=== PATIENT | female | born 1975 | race Caucasian/White ===

== ENCOUNTER 2020-02-06 15:38 | Emergency (ER) | payer MEDICAID ==
[2020-02-06 15:54] VITALS: BP 128/80; PULSE 65
--- NOTE | 2020-02-06 16:23 | EDM.PDOC ---
ED HPI GENERAL MEDICAL PROBLEM - General Chief Complaint: Respiratory Problem Stated Complaint: TROUBLE BREATHING, COUGH Time Seen by Provider: 02/06/20 16:05 Source of Information: Reports: Patient History Limitations: Reports: No Limitations - History of Present Illness INITIAL COMMENTS - FREE TEXT/NARRATIVE: 44-year-old usually healthy female, non-smoker, has had a cough for the past week but it is worsening over the past 2 to 3 days with some productive sputum and chest pain with cough. No real shortness of breath unless she is very active. She says she gets "bronchitis" almost every year at this time. She does not have asthma. Onset: Gradual Duration: Day(s): (7 days) Associated Symptoms: Reports: Cough, Shortness of Breath (With activity), Weakness. Denies: Fever/Chills Generalized Pain Score (Numeric/FACES): 2 - Related Data Allergies Allergy/AdvReac Type Severity Reaction Status Date / Time No Known Allergies Allergy Verified 02/06/20 15:55 Home Meds: Home Meds Cyclobenzaprine [Flexeril] 10 mg PO DAILY PRN 10/08/15 [History] Propranolol [Inderal LA] 240 mg PO DAILY 10/08/15 [History] hydroCHLOROthiazide [Hydrochlorothiazide] 12.5 mg PO DAILY 10/08/15 [History] Cholecalciferol (Vitamin D3) [Vitamin D3] 1,000 unit PO TID 02/06/20 [History] Potassium Chloride [K-Tab ER] 20 meq PO BID 02/06/20 [History] Zonisamide 25 mg PO DAILY 02/06/20 [History] Past Medical History Cardiovascular History: Reports: Hypertension Gastrointestinal History: Reports: Cholelithiasis 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 Denies: Fever, Chills HEENT: Denies: Throat Pain Respiratory: Reports: Shortness of Breath, Cough, Sputum Cardiovascular: Reports: Chest Pain (With coughing only) GI/Abdominal: Reports: No Symptoms Skin: Reports: No Symptoms Neurological: Reports: Headache ED EXAM, GENERAL - Physical Exam Exam: See Below General Appearance: Alert, No Apparent Distress Ears: Normal TMs Head: Atraumatic Respiratory/Chest: No Respiratory Distress, Rhonchi (Scattered perihilar, eugenio with cough) Cardiovascular: Regular Rate, Rhythm Skin Exam: Warm, Dry Course - Vital Signs Last Recorded V/S: Last Vital Signs Temp 96.8 F L 02/06/20 15:53 Pulse 65 02/06/20 15:53 Resp 16 02/06/20 15:53 BP 128/80 02/06/20 15:53 Pulse Ox 98 02/06/20 15:53 - Orders/Labs/Meds Orders: Active Orders 24 hr Category Date Time Status CORONAVIRUS COVID-19, [facility]EL Stat Lab 02/06/20 16:24 Received - Re-Assessments/Exams Free Text/Narrative Re-Assessment/Exam: 02/06/20 16:23 A send out Covid test was obtained and the patient will be placed on a course of Zithromax while awaiting results. She will return if worsening. She should consider quarantining for the next 48 hours. Departure - Departure Time of Disposition: 16:35 Disposition: Home, Self-Care 01 Clinical Impression: Bronchitis - Discharge Information Instructions: Acute Bronchitis, Adult, [id number] Referrals: Grayson Schroeder ELECTRONIC WARFARE TECHNICAL [Primary Care Provider] - Forms: ED Department Discharge Care Plan Goals: Take antibiotic as prescribed, rest and fluids are important. Consider quarantining until the Covid test is available in a couple days. Return anytime if worsening such as difficulty breathing. Sepsis Event Note (ED) - Evaluation Sepsis Screening Result: No Definite Risk - My Orders Last 24 Hours: My Active Orders 02/06/20 16:24 CORONAVIRUS COVID-19, YUNIEL Stat - Assessment/Plan Last 24 Hours: My Active Orders 02/06/20 16:24 CORONAVIRUS COVID-19, YUNIEL Stat
== END 2020-02-06 16:35 | disposition home or self-care (01) ==
LOC: JP.ED 15:38
DX: J40 Bronchitis, not specified as acute or chronic (principal); I10 Essential (primary) hypertension; E66.9 Obesity, unspecified; Z68.35 Body mass index [BMI] 35.0-35.9, adult; Z20.828 Contact with and (suspected) exposure to other viral communicable diseases
CPT/HCPCS: 99283; U0002

== ENCOUNTER 2020-02-25 15:18 | Emergency (ER) | payer MEDICAID ==
[2020-02-25] MEDS ORDERED: Aspirin 81 MG Tab.Chew PO ONE (16:47)
[2020-02-25] MEDS ORDERED: Ketorolac 60 MG/2 ML SDV IM ONE (16:48)
--- NOTE | 2020-02-25 16:51 | EDM.PDOC ---
ED HPI GENERAL MEDICAL PROBLEM - General Chief Complaint: Chest Pain Stated Complaint: CHEST PAIN Time Seen by Provider: 02/25/20 16:44 Source of Information: Reports: Patient, Old Records, RN Notes Reviewed History Limitations: Reports: No Limitations - History of Present Illness INITIAL COMMENTS - FREE TEXT/NARRATIVE: 44-year-old female presents emergency department today complaint of chest pain, she states that chest pain started early this morning it will wax and wane becomes quite intense she is very specific to where the pain is center of her chest left side approximately T4 level. She states she gets short of breath some nausea some diaphoresis when the pain is intense she has no cardiac history does not smoke tobacco products remote family history with grandparents - Related Data Allergies Allergy/AdvReac Type Severity Reaction Status Date / Time No Known Allergies Allergy Verified 02/25/20 15:55 Home Meds: Home Meds Cyclobenzaprine [Flexeril] 10 mg PO DAILY PRN 10/08/15 [History] Propranolol [Inderal LA] 240 mg PO DAILY 10/08/15 [History] hydroCHLOROthiazide [Hydrochlorothiazide] 12.5 mg PO DAILY 10/08/15 [History] Cholecalciferol (Vitamin D3) [Vitamin D3] 1,000 unit PO TID 02/06/20 [History] Potassium Chloride [K-Tab ER] 20 meq PO BID 02/06/20 [History] Zonisamide 25 mg PO DAILY 02/06/20 [History] Mometasone Furoate 200mcg [Asmanex HFA 200mcg] 2 puff IH BID 02/25/20 [History] Past Medical History Cardiovascular History: Reports: Hypertension Gastrointestinal History: Reports: Cholelithiasis 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: Musculoskeletal History: Reports: Fracture Other Musculoskeletal History: fx l arm Neurological History: Reports: Migraines Endocrine/Metabolic History: Reports: Obesity/BMI 30+ - Infectious Disease History Infectious Disease History: Reports: Chicken Pox Social & Family History - Tobacco Use Tobacco Use Status *Q: Never Tobacco User - Caffeine Use Caffeine Use: Reports: Coffee, Tea ED ROS GENERAL - Review of Systems Review Of Systems: See Below Constitutional: Reports: No Symptoms HEENT: Reports: No Symptoms Respiratory: Reports: Shortness of Breath Cardiovascular: Reports: Chest Pain GI/Abdominal: Reports: Nausea : Reports: No Symptoms Musculoskeletal: Reports: No Symptoms ED EXAM, GENERAL - Physical Exam Exam: See Below Exam Limited By: No Limitations General Appearance: Alert, WD/WN, No Apparent Distress Neck: Normal Inspection, Supple, Non-Tender, Full Range of Motion Respiratory/Chest: No Respiratory Distress, Lungs Clear, Normal Breath Sounds, No Accessory Muscle Use, Chest Non-Tender Cardiovascular: Regular Rate, Rhythm, No Murmur GI/Abdominal: Soft, Non-Tender Course - Vital Signs Last Recorded V/S: Last Vital Signs Temp 97.2 F 02/25/20 15:57 Pulse 80 02/25/20 17:02 Resp 16 02/25/20 16:32 BP 138/97 H 02/25/20 17:02 Pulse Ox 98 02/25/20 16:32 - Orders/Labs/Meds Orders: Active Orders 24 hr Category Date Time Status Cardiac Monitoring [RC] .As Directed Care 02/25/20 16:47 Active EKG Documentation Completion [RC] ASDIRECTED Care 02/25/20 16:48 Active EKG 12 Lead [EK] Stat Ther 02/25/20 16:48 Ordered Labs: Laboratory Tests 02/25/20 02/25/20 Range/Units 17:03 17:03 WBC 11.3 H (4.5-11.0) K/uL RBC 4.99 (3.30-5.50) M/uL Hgb 13.4 (12.0-15.0) g/dL Hct 42.0 (36.0-48.0) % MCV 84 (80-98) fL MCH 27 (27-31) pg MCHC 32 (32-36) % Plt Count 357 (150-400) K/uL Neut % (Auto) 63 (36-66) % Lymph % (Auto) 29 (24-44) % [place] % (Auto) 7 H (2-6) % Eos % (Auto) 2 (2-4) % Baso % (Auto) 0 (0-1) % Sodium 140 (140-148) mmol/L Potassium 3.0 L (3.6-5.2) mmol/L Chloride 101 (100-108) mmol/L Carbon Dioxide 28 (21-32) mmol/L Anion Gap 14.0 (5.0-14.0) mmol/L BUN 10 (7-18) mg/dL Creatinine 1.0 (0.6-1.0) mg/dL Est Cr Clr Drug Dosing 52.64 mL/min Estimated GFR (MDRD) > 60 (>60) Glucose 104 (74-106) mg/dL Calcium 8.8 (8.5-10.1) mg/dL Total Bilirubin 0.2 (0.2-1.0) mg/dL AST 17 (15-37) U/L ALT 47 (12-78) U/L Alkaline Phosphatase 62 (46-116) U/L Troponin I < 0.017 (0.000-0.056) ng/mL Total Protein 7.1 (6.4-8.2) g/dL Albumin 3.3 L (3.4-5.0) g/dL Globulin 3.8 H (2.3-3.5) g/dL Albumin/Globulin Ratio 0.9 L (1.2-2.2) Meds: Medications Discontinued Medications Generic Name Dose Route Start Last Admin Trade Name Freq PRN Reason Stop Dose Admin Aspirin 324 mg 02/25/20 16:47 02/25/20 17:03 Aspirin PO 02/25/20 16:48 324 mg ONETIME ONE Administration Ketorolac Tromethamine 60 mg 02/25/20 16:48 02/25/20 17:06 Toradol IM 02/25/20 16:49 60 mg ONETIME ONE Administration Departure - Departure Time of Disposition: 17:59 Disposition: Home, Self-Care 01 Condition: Fair Clinical Impression: Chest wall pain Instructions: Chest Wall Pain, [id number] Referrals: Grayson Schroeder AEROBICS INSTRUCTOR [Primary Care Provider] - Forms: ED Department Discharge Additional Instructions: Use Tylenol or Motrin as needed for pain control, please followup with your primary care provider in 3-5 days if not better, please call return to the emergency department with worsening of symptoms. Sepsis Event Note (ED) - Evaluation Sepsis Screening Result: No Definite Risk - Focused Exam Vital Signs: Vital Signs Temp Pulse Resp BP Pulse Ox 02/25/20 17:02 80 138/97 H 02/25/20 16:32 84 16 144/102 H 98 02/25/20 15:57 97.2 F 78 16 143/91 H 100 02/25/20 15:54 97.2 F 78 16 143/91 H 100 - My Orders Last 24 Hours: My Active Orders 02/25/20 16:47 Cardiac Monitoring [RC] .As Directed 02/25/20 16:48 EKG Documentation Completion [RC] ASDIRECTED EKG 12 Lead [EK] Stat - Assessment/Plan Last 24 Hours: My Active Orders 02/25/20 16:47 Cardiac Monitoring [RC] .As Directed 02/25/20 16:48 EKG Documentation Completion [RC] ASDIRECTED EKG 12 Lead [EK] Stat Plan: Assessment Acuity = acute Site and laterality = chest wall pain Etiology = probable recent viral infection Manifestations = none Location of injury = Home Lab values = CBC, CMP, troponin within normal limits EKG demonstrates sinus rhythm there was no ST elevation or depression chest x-ray shows no acute pulmonary process Plan She had some relief with the Toradol injection provided recommend continue with Tylenol and Motrin as needed for pain control follow-up primary care 3 to 5 days for further evaluation if not better This note was dictated using [employer] voice recognition software please call with any questions on syntax or grammar.
[2020-02-25 17:02] VITALS: BP 138/97; PULSE 80
--- NOTE | 2020-02-25 17:24 | CRLCR ---
INDICATION: Chest pain COMPARISON: None TECHNIQUE: PA and lateral views of the chest were acquired FINDINGS: TUBES AND LINES: None. HEART AND MEDIASTINUM: The heart size is normal. The mediastinal contour appears normal for patient age. LUNGS AND PLEURAL SPACES: The lungs appear normal.The pleural spaces are unremarkable. OSSEOUS STRUCTURES: Age-appropriate appearance. No acute focal finding. IMPRESSION: No evidence of active pulmonary disease. Dictated by Devan Doyle MD @ Feb 25 2020 5:21PM Signed by Dr. Devan Doyle @ Feb 25 2020 5:22PM
[2020-02-25] MEDS ORDERED: Alum Hydrox/Mag Hydrox/Simeth 15 ML, Lidocaine 2% 15 ML PO ONE ×2 (18:02)
== END 2020-02-25 19:05 | disposition home or self-care (01) ==
LOC: JP.ED 15:18
DX: R07.89 Other chest pain (principal); I10 Essential (primary) hypertension; Z79.899 Other long term (current) drug therapy
CPT/HCPCS: 36415; 71046; 80053; 84484; 85025; 93005; 96372; 99285; A9270; J1885; 93010

== ENCOUNTER 2020-03-07 14:38 | Emergency (ER) | payer MEDICAID ==
[2020-03-07 16:00] VITALS: BP 142/118; PULSE 69
--- NOTE | 2020-03-07 16:04 | EDM.PDOC ---
ED HPI GENERAL MEDICAL PROBLEM - General Chief Complaint: Abdominal Pain Stated Complaint: RIGHT SIDE PAIN UNDER ARM TO HIP Time Seen by Provider: 03/07/20 14:56 Source of Information: Reports: Patient History Limitations: Reports: No Limitations - History of Present Illness INITIAL COMMENTS - FREE TEXT/NARRATIVE: Patient presents emergency room today secondary to concern about increasing right upper quadrant pain she states that pain is in the right upper quadrant goes around to the flank and her back area she also has radiation up into her right shoulder area patient was seen by her PCM today and this was discussed as well as labs were completed secondary to this pain as was discussed yesterday there is an ultrasound of her abdomen that is scheduled for patient states that when her PCM called her today with lab results and her report that she was unable to eat other than enough food to swallow her potassium pill this morning her PCM recommended that she come to the emergency room for further evaluation patient states that she does have known gallstones she was initially diagnosed with gallstones in 2004 during and she has had intermittent pain and discomfort since then she was advised at that time that she could continue to live with them or she could have them taken out that they may continue to cause her pain at that time her she may have pain resolution and has noted that she has been able to manage with dietary changes as long as she does not eat spicy foods. 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 and asthma, obesity Meds--probable potassium chloride hydrochlorothiazide Azamnex inhaler albuterol inhaler Zonimen propanolol Flexeril Duration: Getting Worse Right Upper Abdomen Pain Score (Numeric/FACES): 8 - Related Data Allergies Allergy/AdvReac Type Severity Reaction Status Date / Time No Known Allergies Allergy Verified 02/25/20 15:55 Home Meds: Home Meds Cyclobenzaprine [Flexeril] 10 mg PO DAILY PRN 10/08/15 [History] Propranolol [Inderal LA] 240 mg PO DAILY 10/08/15 [History] Cholecalciferol (Vitamin D3) [Vitamin D3] 1,000 unit PO TID 02/06/20 [History] Potassium Chloride [K-Tab ER] 20 meq PO BID 02/06/20 [History] Zonisamide 37.5 mg PO DAILY 02/06/20 [History] Mometasone Furoate 200mcg [Asmanex HFA 200mcg] 2 puff IH BID 02/25/20 [History] Frovatriptan Succinate [Frova] 2.5 mg PO ASDIRECTED 03/07/20 [History] Ibuprofen 200 mg PO BEDTIME 03/07/20 [History] hydroCHLOROthiazide [Hydrochlorothiazide] 25 mg PO DAILY 03/07/20 [History] Past Medical History Cardiovascular History: Reports: Hypertension Gastrointestinal History: Reports: Cholelithiasis 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 Denies: Fever, Chills HEENT: Reports: No Symptoms Respiratory: Reports: No Symptoms Cardiovascular: Reports: No Symptoms GI/Abdominal: Reports: Abdominal Pain, Decreased Appetite. Denies: Nausea, Vomiting : Reports: No Symptoms Musculoskeletal: Reports: Shoulder Pain (right) Skin: Reports: No Symptoms Neurological: Reports: No Symptoms Psychiatric: Reports: No Symptoms Hematologic/Lymphatic: Reports: No Symptoms Immunologic: Reports: No Symptoms ED EXAM, GI/ABD - Physical Exam Exam: See Below Exam Limited By: No Limitations General Appearance: Alert, No Apparent Distress, Obese Eyes: Bilateral: Normal Appearance, EOMI Ears: Normal External Exam, Hearing Grossly Normal Nose: Normal Inspection Throat/Mouth: Normal Inspection, Normal Lips, Normal Oropharynx Head: Atraumatic, Normocephalic Neck: Normal Inspection, Supple, Non-Tender, Full Range of Motion. No: Lymphadenopathy (R), Lymphadenopathy (L) Respiratory/Chest: No Respiratory Distress, Lungs Clear, Normal Breath Sounds, No Accessory Muscle Use Cardiovascular: Normal Peripheral Pulses, Regular Rate, Rhythm, No Edema, No Murmur GI/Abdominal Exam: Normal Bowel Sounds, Soft, Tender, Other (RUQ tenderness, + Arrington's to light touch, tenderness noted posteriorly on right ). No: Distended, Rigid (Female) Exam: Deferred Rectal (Female) Exam: Deferred Back Exam: Normal Inspection, Other (right posterior tenderness c/w acute choleylithiasis) Extremities: Normal Inspection, Normal Range of Motion, No Pedal Edema, Normal Capillary Refill Neurological: Alert, Oriented, Normal Cognition, No Motor/Sensory Deficits Psychiatric: Normal Affect, Normal Mood Skin Exam: Warm, Dry, Intact, Normal Color Course - Vital Signs Text/Narrative:: 1600--from clinic yesterday have been reviewed sodium was 142 potassium 3.3 chloride 103 carbon dioxide 29 anion gap 10 bun 10 creatinine 0.84 GFR greater than 60 calcium 9.2 glucose 96 total protein 7.3 albumin 3.9 alk phos 67 AST 20 ALT 34 total bili 0.3 WBCs 9.2 H&H 13/40 platelets 349 no left shift lipase was 57 Mealey's was 36 1615--call placed/received call back from Dr Garay, Gen Surgeon. Case was discussed. He request that patient f/u tomorrow in his clinic at 1100 to discuss outpatient surgery options on at this time 1620--d/w patient plan as recommended by Dr Garay to f/u in clinic at 1100 tomorrow with possible surgery on . d/w her diet of clear liquid, avoidance of fatty foods and pain/nausea management. she verbalized understanding/agreement with plan of care at this time. ready for d/c Last Recorded V/S: Last Vital Signs Temp 96.8 F L 03/07/20 14:50 Pulse 69 03/07/20 15:59 Resp 18 03/07/20 14:50 BP 142/118 H 03/07/20 15:59 Pulse Ox 99 03/07/20 15:59 - Orders/Labs/Meds Orders: Active Orders 24 hr Category Date Time Status Abdomen Ltd [US] Stat Exams 03/07/20 15:15 Ordered - Radiology Interpretation Free Text/Narrative:: 3341--ultrasound report from reproduction technician is noted for letter with echogenic shadowing multiple gallstones into the neck of Arrington's sign neck is 0.9 cm wall measurement is 0.4 cm small amount of fluid in all radiology ultrasound report is pending at this time Departure - Departure Time of Disposition: 16:21 Disposition: Home, Self-Care 01 Clinical Impression: Cholelithiasis - Discharge Information *PRESCRIPTION DRUG MONITORING PROGRAM REVIEWED*: Yes *COPY OF PRESCRIPTION DRUG MONITORING REPORT IN PATIENT LAVINIA: Not Applicable (no report found/no previous prescriptions) Referrals: Grayson Schroeder, AIR QUALITY ENGINEER [Primary Care Provider] - Forms: ED Department Discharge Additional Instructions: PLEASE GO TO [facility]OM[facility] AT 11 AM -- ARRIVE 15 MINUTES EARLY FOR CHECK IN PROCEDURES DIET RESTRICTION TO CLEAR LIQUIDS UNTIL SURGERY IS RECOMMENDED--YOU MAY TRY LOW FAT/LOW SALT BROTH OR SOUP SUCH CHICKEN NOODLE SOUP, OTHER OPTIONS INCLUDE WATER, NON-CITRIUS JUICE, SPORTS DRINKS OF CHOICE, POPCICLES, JELLO PAIN MEDICATION OF NORCO HAS BEEN PROVIDED FOR TONIGHT/TOMORROW--IF YOU NEED MORE PLEASE DISCUSS WITH DR GARAY AT YOUR APPOINTMENT TOMORROW YOU HAVE BEEN GIVEN A MEDICATION CALLED PEPCID/FAMOTADINE TO HELP DECREASE STOMACH ACID, USE THIS IN ADDITION TO YOUR PRILOSEC/OMEPRAZOLE Sepsis Event Note (ED) - Evaluation Sepsis Screening Result: No Definite Risk - Focused Exam Vital Signs: Vital Signs Temp Pulse Resp BP Pulse Ox 03/07/20 15:59 69 142/118 H 99 03/07/20 14:50 96.8 F L 80 18 147/108 H 97 - My Orders Last 24 Hours: My Active Orders 03/07/20 15:15 Abdomen Ltd [US] Stat - Assessment/Plan Last 24 Hours: My Active Orders 03/07/20 15:15 Abdomen Ltd [US] Stat
--- NOTE | 2020-03-07 16:57 | CRLUS ---
INDICATION: Right upper quadrant abdomen pain. Cholelithiasis. TECHNIQUE: Ultrasound abdomen limited. Sonographic images of the right upper quadrant were obtained using mendes-scale and color Doppler images. COMPARISON: None. FINDINGS: Liver: Normal in size and echotexture. No masses. No intrahepatic biliary dilatation. Gallbladder: Multiple gallbladder stones creating a wall echo shadow complex. There is gallbladder wall thickening measuring 4 mm. Common bile duct: 4 mm. Pancreas: Unremarkable. Right kidney: Normal in size. Normal echotexture and cortex. No masses, stones, or hydronephrosis. Vasculature: Proximal abdominal aorta and IVC are normal. IMPRESSION: Numerous gallbladder stones with wall thickening suggesting cholecystitis. Dictated by Margarito Jenkins MD @ 03/07/2020 4:55:30 PM Dictated by: Margarito Jenkins MD @ 03/07/2020 16:55:38 (Electronically Signed)
== END 2020-03-07 16:50 | disposition home or self-care (01) ==
LOC: JP.ED 14:38
DX: K80.20 Calculus of gallbladder without cholecystitis without obstruction (principal); I10 Essential (primary) hypertension; E66.9 Obesity, unspecified; Z68.35 Body mass index [BMI] 35.0-35.9, adult; Z79.899 Other long term (current) drug therapy
CPT/HCPCS: 76705; 99283; 99284-25

== ENCOUNTER 2020-03-09 06:46 | Day surgery (SDC) | payer MEDICAID ==
[~2020-03-09 06:46] MED LIST: Bupivacaine 0.5%/EPINEPHrine 1:200,000 50 ML MDV ONE; Meropenem 500 MG SDV ONE
[2020-03-09] MEDS ORDERED: Acetaminophen 500 MG Tab PO ONE (07:15)
[2020-03-09] MEDS ORDERED: Neostigmine Methylsulfate 1 MG/ML 5 ML Syringe ONE (07:15)
[2020-03-09] MEDS ORDERED: Dexamethasone 4 MG/ML SDV ONE (07:15)
[2020-03-09] MEDS ORDERED: Ondansetron 4 MG/2 ML SDV ONE (07:15)
[2020-03-09] MEDS ORDERED: Rocuronium 50 MG/5 ML Vial ONE (07:15)
[2020-03-09] MEDS ORDERED: fentaNYL 250 MCG/5 ML SDV ONE (07:15)
[2020-03-09] MEDS ORDERED: Propofol 200 MG/20 ML SDV ONE (07:15)
[2020-03-09] MEDS ORDERED: Succinylcholine 200 MG/10 ML MDV ONE (07:15)
[2020-03-09] MEDS ORDERED: Glycopyrrolate 0.2 MG/ML 5 ML MDV ONE (07:15)
[2020-03-09] MEDS ORDERED: Dextrose 5%-Lactated Ringers 1,000 ML IV SCH (07:45)
[2020-03-09] MEDS ORDERED: Albuterol/Ipratropium 3.0-0.5 MG/3 ML Neb Soln NEB ONE (08:15)
[2020-03-09] MEDS ORDERED: Ampicillin/Sulbactam Na 3 GM in Sodium Chloride 0.9% 100 ML IV ONE (08:45)
[2020-03-09] MEDS ORDERED: Ketamine 50 MG in Sodium Chloride 0.9% 49.5 ML IV SCH (09:00)
[2020-03-09] MEDS ORDERED: Ropivacaine 40 ML, dexAMETHasone 8 MG, EPINEPHrine 0.4 MG, Sodium Chloride 0.9% 37.6 ML NERVRT SCH ×4 (09:00)
[2020-03-09] MEDS ORDERED: Ketamine 500 MG/5 ML MDV IV SCH (09:00)
[2020-03-09] MEDS ORDERED: fentaNYL 100 MCG/2 ML SDV ONE (09:04)
[2020-03-09] MEDS ORDERED: Albuterol/Ipratropium 3.0-0.5 MG/3 ML Neb Soln INH PRN (11:00)
[2020-03-09] MEDS ORDERED: HYDROmorphone 0.5 MG/0.5 ML Syringe IVPUSH PRN (11:00)
[2020-03-09] MEDS ORDERED: Ondansetron 4 MG/2 ML SDV IVPUSH PRN (11:00)
[2020-03-09] MEDS ORDERED: Albuterol/Ipratropium 3.0-0.5 MG/3 ML Neb Soln INH SCH (11:00)
[2020-03-09] MEDS ORDERED: HYDROmorphone 1 MG/ML Syringe IV PRN (11:00)
[2020-03-09] MEDS ORDERED: LACTATED RINGERS IV SCH ×2 (12:00)
[2020-03-09] MEDS ORDERED: POTASSIUM CHLORIDE IV SCH ×2 (12:00)
[2020-03-09] MEDS ORDERED: DEXTROSE 5% IV SCH ×2 (12:00)
[2020-03-09] MEDS ORDERED: Ampicillin/Sulbactam Na 3 GM in Sodium Chloride 0.9% 100 ML IV SCH (14:00)
[2020-03-09] MEDS ORDERED: Pantoprazole 40 MG Vial IVPUSH SCH (14:00)
[2020-03-09] MEDS: Potassium Chloride 20 MEQ Tab.ER PO SCH ×4 (14:06→21:50)
[2020-03-09] MEDS: Propranolol 60 MG Cap.ER PO SCH ×2 (19:20→21:50)
[2020-03-09] MEDS: Acetaminophen/HYDROcodone 325-5 MG Tab PO PRN (19:59)
[2020-03-09] MEDS ORDERED: Aluminum Hydroxide/Magnesium Hydroxide/Simethicone Susp 30 ML Cup PO PRN (20:01)
[2020-03-10] MEDS ORDERED: Mometasone Furoate Powder 220 MCG/Puff 14 Dose Inhaler INH SCH (07:00)
[2020-03-10] MEDS: Acetaminophen/HYDROcodone 325-5 MG Tab PO PRN (07:32)
[2020-03-10] MEDS: Spironolactone 25 MG Tab PO SCH ×2 (08:45→08:59)
[2020-03-10] MEDS ORDERED: Hydrochlorothiazide 12.5 MG Cap PO SCH (09:00)
[2020-03-10] MEDS ORDERED: Zonisamide 50 MG Capsule PO SCH (09:00)
[2020-03-10] MEDS ORDERED: Hydrochlorothiazide 25 MG Tab PO SCH (09:00)
[2020-03-10 10:29] VITALS: BP 113/58; PULSE 63
--- NOTE | 2020-03-10 12:33 | DISCH ---
ADMISSION DIAGNOSIS: Cholelithiasis. DISCHARGE DIAGNOSIS: Laparoscopic cholecystectomy for cholelithiasis. Date of procedure: 03/09/2020. HISTORY: Nichelle Garay is a pleasant 45-year-old female with right upper quadrant abdominal pain. After preoperative evaluation and discussion of possible risks and possible complications, she wished to proceed with surgical procedure. HOSPITAL COURSE: On admission to [facility], Nichelle's potassium was 2.3. This was replaced. She had no operative complications. She was able to be discharged on postoperative day #1. Potassium on postoperative day #1 was 3.2. Vital signs stable. Activity good. Pain was well managed. Oral intake adequate. PHYSICAL EXAMINATION: GENERAL: Nichelle Garay is a pleasant 45-year-old female. VITAL SIGNS: Height is 5 feet, weight is 174 pounds. TPR 98.3; 58, 16, blood pressure 108/55. HEENT: Negative. NECK: Supple. HEART: Regular rate and rhythm. LUNGS: Clear. ABDOMEN: MILAN drain will be removed. 4 x 4 placed over the MILAN drain. MILAN drain site, dressings dry and intact. Abdominal binder is on. EXTREMITIES: Without peripheral edema. DISPOSITION: Discharged to home. CONDITION: Stable and improving. FOLLOWUP: Appointment with Erendira Kirby PA-C, 03/17/2020 at 10 a.m. HOME MEDICATIONS: 1. [place] 5/325 mg 1 tablet every 6 hours p.r.n. pain, #28. 2. Spironolactone 12.5 mg p.o. daily, #30. 3. Potassium chloride 40 mEq p.o. daily, #30. 4. She is to resume home medication with exception of the 20 mEq of potassium b.i.d. She is to restart that in one month when she is done with the 40. The patient states she forgets that 2nd dose. DIET: Usual diet as tolerated. Drink 8 to 10 glasses of water a day. ACTIVITY: No lifting greater than 10 pounds for 2 weeks. DISCHARGE INSTRUCTIONS: May drive if no [place]rington for 6 hours. May shower. Keep operative site clean and dry. Wear abdominal binder for 2 weeks and then as tolerated. Notify provider if any fever, increased pain, swelling, redness, drainage, nausea, vomiting. Use incentive spirometer 10 times every hour while awake. /[id number]
--- NOTE | 2020-03-15 13:48 | OR ---
DATE OF PROCEDURE: 03/09/2020 SURGEON: Devan Garay MD PREOPERATIVE DIAGNOSIS: Subacute and chronic cholecystitis and cholelithiasis. POSTOPERATIVE DIAGNOSES: 1. Subacute and chronic cholecystitis and cholelithiasis. 2. Pericholecystic inflammatory fluid collection/abscess. OPERATIVE PROCEDURES: Diagnostic laparoscopy with: 1. Cholecystectomy (42109). 2. Drainage of pericholecystic inflammatory fluid collection/abscess (07896). ANESTHESIA: General. GIVING OFFICER: Erendira Kirby PA-C INDICATIONS FOR PROCEDURE: A 45-year-old presenting with ongoing right upper quadrant pain related to smoldering cholecystitis. She was originally seen in the emergency room 2 days ago and beds were not available, and at this time presents for a cholecystectomy. Potential risks of the procedure including bleeding, infection, injury to underlying viscera, problems with stones migrating in the common bile duct requiring additional interventions for correction, as well as possibility of persistent symptoms postoperatively and lastly remote possibility of cardiopulmonary, septic, or hemorrhagic complications leading to were discussed, and the patient wishes to proceed. DETAILS OF PROCEDURE: The patient was taken to the operating room and placed in a supine position. After general endotracheal anesthesia was induced, the abdomen was prepped and draped. A transverse epigastric incision was made and peritoneal cavity entered under direct vision with an Optiview trocar, inflated to 15 mmHg of CO2. Laparoscope was then reinserted. No underlying trocar insertion site injuries were seen. Following this, a 12 mm subumbilical trocar was placed and a single 5 mm right abdominal trocar. The gallbladder was then retracted anteriorly. The patient was noted to have a thinly purulent fluid collection posterior to the gallbladder consistent with inflammatory fluid collection versus abscess. Cultures of this were obtained and fluid was then evacuated. Some omental adhesions between the gallbladder and the omentum were then taken down with Harmonic scalpel dissection then continued around the gallbladder neck and cystic duct junction. Once that area was well delineated, as was adjacent cystic artery, the gallbladder cystic duct junction was divided with a LISETTE purple load as it was quite thickened and friable in appearance. The artery was then taken with clips and divided. The gallbladder was then dissected off the gallbladder bed using Harmonic Scalpel, delivered through the epigastric trocar site. This contained multiple stones with the gallbladder essentially being entirely replaced by stones. The area of dissection was then inspected. Some fibrin sealant was placed over the area of the cystic artery ligation. This area appeared to be also quite friable. Chris-Mitchell drain was taken out through the right lateral trocar site and positioned into the area of the gallbladder bed and the trocars were sequentially removed. The fascia at the 12 mm site was closed with 0 Vicryl stitch and the skin with 4-0 Vicryl skin stitch. Dressing was applied. The patient was taken to the recovery room in satisfactory condition. Physician legal executive assistant, Erendira Kirby, played an essential role in assisting in this case, helping to position the patient, retract structures as needed, as well as suturing and cutting sutures when indicated. Her presence improved patient safety and decreased operative time. Devan Garay MD /[id number]
== END 2020-03-10 11:51 | disposition home or self-care (01) ==
LOC: JP.SDS 06:46 → JP.MS 09:50 → JP.SDS 03-10 11:51
PROVIDERS: ATTEND Surgery
DX: K80.12 Calculus of gallbladder with acute and chronic cholecystitis without obstruction (principal); I10 Essential (primary) hypertension; E66.01 Morbid (severe) obesity due to excess calories; Z68.35 Body mass index [BMI] 35.0-35.9, adult; Z98.890 Other specified postprocedural states; Z87.891 Personal history of nicotine dependence; Z01.812 Encounter for preprocedural laboratory examination; Z20.828 Contact with and (suspected) exposure to other viral communicable diseases; Z79.899 Other long term (current) drug therapy
CPT/HCPCS: 36415; 47562; 80048; 80053; 82247; 83735; 84075; 84100; 85025; 85027; 87070; 87075; 87205; 87635; 88304; 94640; A9270; C9113; J0171; J0295; J0330; J1100; J1170; J2405; J2704; J2710; J2795; J3010; J3480; J3490; J7050; J7121; J2185; J7620-GY; U0002

== ENCOUNTER 2025-02-14 17:53 | Emergency (ER) | payer OTHER, MEDICAID ==
[2025-02-14 20:12] VITALS: BP 162/100; PULSE 90
== END 2025-02-14 21:15 | disposition left against medical advice (07) ==
LOC: JP.ED 17:53
DX: Z53.21 Procedure and treatment not carried out due to patient leaving prior to being seen by health care provider (principal)